=== PATIENT | female | born 1960 | race Caucasian/White ===

== ENCOUNTER → 2016-07-14 | Day surgery (SDC) | payer MEDICARE, OTHER ==
[~2016-07-14] MED LIST: ALBUTEROL20 ml INH; BACLOFEN10 MG PO; BUSPAR15 M2; BUSPAR15 MG PO; CALCIUM + D 6001 TA1 PO; CALCIUM 600 +1 EAC5 PO; CARAFATE1 GM PO; DULOXETINE HCL60 MG PO; FLEXERIL10 MG PO; FUROSEMIDE40 MG PO; HYDROCODON-ACE1 EAC9 PO; KCL PO; LAMICTAL; LAMICTAL PO; LASIX PO; LEVAQUIN PO; MAGNESIUM400 MG PO; MEDROL PO; METOPROLOL SUCC25 MG PO; MULTI-VITAMIN1 EAC1 PO; MULTIVITAMIN1 UDCAP PO; NABUMETONE PO; NAPROSYN-EC500 M1 PO; OYSTER SHELL C1 EAC3 PO; OYSTER SHELL C500 MG PO; PAXIL PO; PHENERGAN W/CO120 ML PO; PROTONIX PO; PROZAC PO; TOPAMAX PO; TOPAMAX200 MG PO; TOPROL XL PO; TRAZODONE PO; WELLBUTRIN PO; ZITHROMAX PO; ZOLOFT PO; ZOLOFT100 MG PO
--- NOTE | ~2016-07-14 | EKG ---
PATIENT: CELENA HUTTON UNIT #: [id number] Ventricular Rate: 72 BPM Atrial Rate: 72 BPM P-R Interval: 150 ms QRS Duration: 66 ms Q-T Interval: 382 ms QTC Calculation(Bezet): 418 ms P Crawford: 36 degrees Calculated R Crawford: -7 degrees Calculated T Crawford: 13 degrees Diagnosis Line: Normal sinus rhythm Diagnosis Line: Minimal voltage criteria for LVH, may be normal Diagnosis Line: variant Diagnosis Line: Otherwise normal ECG Diagnosis Line: When compared with ECG of 28-APR-2016 22:15, Diagnosis Line: Nonspecific T wave abnormality no longer evident Diagnosis Line: in Anterolateral leads Diagnosis Line: Confirmed by KINGS KAUR MD ([id number]) on 07/15/2016 Diagnosis Line: 9:59:12 AM INTERPRETING MD: NATASHA WALKER
--- NOTE | ~2016-07-14 | OR ---
Unit #: [id number] #: [id number] Patient: CORINE HUTTON [id number] [place], [place] [address] [id number] O MR#: [id number] NAME: CORINE HUTTON ROOM: Date of Procedure: 07/14/2016 Admission Date: 07/14/2016 Surgeon: Stevie Jason III, M.D. : 1960 Attending Physician: Stevie Jason III, M.D. Primary Care Physician: Corine Turner M.D. OPERATIVE REPORT JOB NOTE: VERIFY ADT. PREOPERATIVE DIAGNOSIS Nonhealing abdominal wall wound. POSTOPERATIVE DIAGNOSIS Nonhealing abdominal wall wound. PROCEDURE PERFORMED Abdominal wall wound debridement measuring 2 cm x 4 cm. ANESTHESIA MAC. SPECIMENS To pathology. COMPLICATIONS None apparent. INDICATIONS FOR PROCEDURE This is a 55-year-old lady, who has had her lap band removed due to an erosion. She developed a wound infection, where her port used to be and this was then packed with iodoform gauze. 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 I discussed this with the patient and she wished to proceed. DESCRIPTION OF PROCEDURE After consent was obtained, the patient was brought to the operating room and placed in the supine position. MAC was given and we prepped and draped her anterior abdominal wall in standard surgical fashion. I injected the area with 0.25% plain Marcaine. I then made an elliptical incision around the chronic draining sinus and excised this all the way down to the base of the wound. The wound ended up being 2 cm tall and 4 cm wide and almost was deep down to the fascia. Once I had good hemostasis, I packed the wound with normal saline gauze. She tolerated the procedure without any problems and returned to the recovery room in stable condition. She is familiar with how to do dressing changes and I will see her back in the office in 2 to 3 weeks. Dictated by... Unit #: [id number] #: [id number] Patient: CORINE HUTTON Stevie Jason III, M.D. VCL/curt TD: 07/15/2016 07:48 JOB #: [id number] OPERATIVE REPORT Page 1 of 1 X Stevie Jason III, MD PROCEDURE OPERATIVE NOTE
[2016-07-14 07:24] LABS: BUN/CREATININE RATIO 26.66; CALCIUM SERUM 9.3 mg/dL (8.4-10.2); CREATININE SERUM 0.6 mg/dL (0.6-1.4); GLOM FILT RATE Estimated 104.1 mL/min (>60); POTASSIUM 3.9 mmol/L (3.5-5.1)
== END | disposition home or self-care (01) ==
LOC: CSUR 06:05
PROVIDERS: Surgery
DX: T81.4XXA Infection following a procedure, initial encounter (principal); K21.9 Gastro-esophageal reflux disease without esophagitis; M19.90 Unspecified osteoarthritis, unspecified site; J45.909 Unspecified asthma, uncomplicated; F32.9 Major depressive disorder, single episode, unspecified; F41.9 Anxiety disorder, unspecified; E66.01 Morbid (severe) obesity due to excess calories; Z68.35 Body mass index [BMI] 35.0-35.9, adult; Z88.5 Allergy status to narcotic agent; Z88.6 Allergy status to analgesic agent; Z88.8 Allergy status to other drugs, medicaments and biological substances; Z79.899 Other long term (current) drug therapy; Z90.710 Acquired absence of both cervix and uterus; Z98.51 Tubal ligation status; Z98.890 Other specified postprocedural states; Y83.8 Other surgical procedures as the cause of abnormal reaction of the patient, or of later complication, without mention of misadventure at the time of the procedure
CPT/HCPCS: 80048; 88304; 88312; 93005; J2250; J3010

== ENCOUNTER → 2016-08-26 | Outpatient (CLI) | payer MEDICARE, OTHER ==
--- NOTE | ~2016-08-26 | CT2 ---
[facility] A Service of [facility] RADIOLOGY TEXT RESULTS PATIENT: CORINE HUTTON LOCATION: [facility] : 64 UNIT #: [id number] AGE: [address]: Stevie Jason III, MD SEX: F ORDER DR: [id number] [facility] [address] [place], [place] [address] [id number] O MR#: [id number] [facility] #: [id number] NAME: CORINE HUTTON : 1960 SEX: F STUDY DATE/TIME: 08/26/2016 10:31 UNIT: [facility] ROOM: STUDY DESCRIPTION: CT Abd and Pelv W Cont Attending Physician: Stevie Jason III, M.D. Referring Physician: Stevie Jason III, M.D. Ordering Physician: Stevie Jason III, M.D. Primary Care Physician: Corine Turner M.D. MEDICAL IMAGING REPORT This report is preliminary unless electronic signature is present EXAM CT abdomen and pelvis with contrast INDICATIONS Right lower quadrant abdominal pain for the past week. TECHNIQUE Contrast-enhanced CT of the abdomen and pelvis. This CT exam was performed with one or more of the following radiation dose reduction techniques: automatic exposure control, adjustment of mA and/or kV according to patient size, and iterative reconstruction. COMPARISON None. FINDINGS ABDOMEN WITH CONTRAST: Included lung bases are clear. Liver measures 14.3 cm and has normal morphology. Low-attenuation liver compared with the spleen, nonspecific on contrast-enhanced CT but suspicious for steatosis. The spleen, kidneys and adrenal glands, pancreas, gallbladder unremarkable. Moderate colonic stool. Appendix is normal. PELVIS WITH CONTRAST: Previous hysterectomy. No pelvic mass or fluid. No aggressive appearing bone lesion. IMPRESSION 1. No acute findings. 2. Low attenuation of the liver is suspicious for steatosis. Liver [facility] A Service of [facility] RADIOLOGY TEXT RESULTS PATIENT: [facility] UN[facility] #: [id number] AGE: [address]: Stevie Jason III, MD SEX: F ORDER DR: otherwise has normal size and morphology. Dictated by... Ren Quick M.D. THIS IS AN ELECTRONICALLY VERIFIED REPORT Ren Quick M.D. at 08/27/2016 10:08 AM EED/pcl TD: 08/26/2016 16:30 JOB #: [id number] MEDICAL IMAGING REPORT Page 1 of 1 COPY
[2016-08-26 10:35] LABS: POC - CREATININE 0.84 mg/dL (0.44-1.03); POC - GFR >60.0 mL/min (>60)
== END | disposition home or self-care (01) ==
LOC: CCAT 08:45
PROVIDERS: Surgery
DX: R10.31 Right lower quadrant pain (principal)
CPT/HCPCS: 74177; 82565; Q9967